=== PATIENT | female | born 1985 | race Caucasian/White ===

== ENCOUNTER → 2019-09-19 | Outpatient (CLI) | payer OTHER ==
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
== END | disposition home or self-care (01) ==
LOC: PMG 15:52
PROVIDERS: ATTEND Registered Nurse
DX: M79.641 Pain in right hand (principal); M79.601 Pain in right arm; R07.81 Pleurodynia; M54.2 Cervicalgia
CPT/HCPCS: 71100; 72040; 73060; 73090; 73120; 73130